=== PATIENT | female | born 1955 | race Caucasian/White ===

== ENCOUNTER 2016-11-20 10:47 | Emergency (ER) | payer OTHER ==
[~2016-11-20] VITALS: Ht 167.6 cm; Wt 72.6 kg
--- NOTE | 2016-11-20 10:55 | ED CARDIAC/CP/PALPITATIONS ---
History of Present Illness General Chief Complaint: Chest Pain Stated Complaint: BIBA, C/P Source: patient, old records, EMS Exam Limitations: no limitations Allergies Coded Allergies: indomethacin (UNKNOWN 11/20/16) iodine (UNKNOWN 11/20/16) phenytoin (UNKNOWN 11/20/16) Reconcile Medications Amlodipine Besylate 10 MG TABLET 1 TAB PO DAILY HEART (Reported) Aspirin (Aspirin*) 81 MG TAB.CHEW 1 TAB PO DAILY HEART HEALTH (Reported) Calcium Citrate (Calcitrate) (Unknown Strength) TABLET (Unknown Dose) PO DAILY SUPPLEMENT (Reported) Cholecalciferol (Vitamin D3) (Vitamin D3) 5,000 UNIT TABLET 1 TAB PO DAILY VITAMIN SUPPORT (Reported) Cyanocobalamin (Vitamin B-12) (B-12) 1,000 MCG TABLET 1 TAB PO DAILY VITAMIN SUPPORT (Reported) Multivitamin (Daily Multiple Vitamin) 1 EACH TABLET 1 TAB PO DAILY VITAMIN SUPPORT (Reported) Theresa-3 Fatty Acids/Fish Oil (Fish Oil 1,000 MG Capsule) 340 MG-1,000 MG CAPSULE 1 CAP PO DAILY SUPPLEMENT (Reported) Prasterone (Dhea)/Calcium Carb (Dhea 10 MG Tablet) 10 MG-47 MG CALCIUM TABLET 1 TAB PO UNKNOWN (Reported) Triage Nurses Notes Reviewed? yes Onset: Abrupt Duration: hour(s): (2.5), better, resolved prior to arrival Timing: single episode today Quality/Severity: moderate, aching, tightness Location: central Radiation: jaw, back Activities at Onset: none Prior Chest Pain/Card Workup: echocardiography, stress test Nitro Today/Relief: 0.4 mg x 1, provided by EMS, complete relief Aspirin Today: 81 mg x 2, provided at home Associated Symptoms: denies HPI: 61-year-old female with history of raynauds, coronary vasospasm for which she is seen by stewardess supervisor Dr. Barrera presents to the ER for evaluation after she developed sudden onset of central chest pain tightness around 9:30 this morning that radiated into her jaw and into her back which was new. She took 2 extra aspirin this morning with improvement of pain to 5 out of 10. Pain was initially 10 out of 10. On EMS arrival she was given nitroglycerin and the pain has resolved. She reports a history of similar episodes 1 year ago. She had a stress test and echocardiogram performed at that time which she believes was unremarkable. No recent changes in her medication, her mother is currently at [facility] undergoing a tavr procedure today and reports to alot of stress. Patient denies any associated shortness of breath, hemoptysis pain with inspiration abdominal pain nausea vomiting diarrhea. She does not smoke there are no other modifying factors or associated symptoms otherwise (IGOR LAMAS) Vital Signs & Intake/Output Vital Signs & Intake/Output Vital Signs Date Time Temp Pulse Resp B/P B/P Pulse O2 O2 Flow FiO2 Mean Ox Delivery Rate 11/20 1527 97.2 78 18 112/61 100 Room Air 11/20 1306 97.0 69 18 130/76 98 Room Air 11/20 1108 97.0 84 16 126/73 97 Room Air Past History Travel History Traveled to [place] past 21 day No Medical History Any Pertinent Medical History? see below for history Cardiovascular: CORONARY VASOSPASM Musculoskeletal: rheumatoid arthritis, RAYNAUDS Surgical History Surgical History: non-contributory Family History Hx Contributory? No (IGOR LAMAS) Review of Systems Review of Systems Constitutional: Reports: see HPI. All Other Systems: Reviewed and Negative Comments Review of systems: See HPI, All other systems negative. Constitutional, no chills no fever, no malaise no weight loss HEENT:no sore throat no congestion, no ear pain Cardiovascular: chest pain , no palpitation , no orthopnea Skin: no rashes, no change in skin Respiratory: No dyspnea no cough no sputum no hemoptysis GI: No nausea no vomiting, no diarrhea : No dysuria No hematuria Muscle skeletal: No joint pain, no joint swelling, no back pain, no neck pain, Neurologic: no headache Psych: stress Heme/endocrine: No bruising no bleeding Immunology: No lymphadenopathy (IGOR LAMAS) Physical Exam Physical Exam General Appearance: well developed/nourished, no apparent distress, alert, awake Cardiovascular: regular rate/rhythm, normal peripheral pulses Comments: Well-developed well-nourished person in no acute distress HEENT: Normal EENT exam; PERRL, EOMI, HEAD is atraumatic. moist mucous membranes. Neck: Supple, normal range of motion Back: Nontender, no CVA tenderness. Full range of motion Cardiovascular: Regular rate and rhythms no murmurs rubs or gallops, normal JVP Respiratory: Chest nontender.There were no bony deformities, no asymmetry. No respiratory distress. Patient speaking in full complete sentences. Breath sounds clear to auscultation bilaterally: NO W/R/R Abdomen: Soft, nontender nondistended, no appreciable organomegaly. Normal bowel sounds. No rebound/guarding, No appreciable enlargement of the abdominal aorta, No ascites. Extremity: No edema, full range of motion of extremities Neuro: Alert oriented x3, motor sensory normal, There were no obvious focal neurologic abnormalities. Skin: No appreciable rash on exposed skin, skin is warm and dry. Psych: Mood and affect is normal, memory and judgment is normal. Core Measures ACS in differential dx? Yes Severe Sepsis Present: No Septic Shock Present: No (IGOR LAMAS) Progress Differential Diagnosis: AMI, aortic dissection, atrial fibrillation, cholecystitis, hyperkalemia, musculoskeletal pain, myocarditis, pancreatitis, pericarditis, pneumonia, pneumothorax, PSVT, pulmonary embolism, PUD/GERD, unstable angina Diagnostic Imaging: Viewed by Me: Radiology Read. Discussed w/RAD: Radiology Read. Radiology Impression: PATIENT: KATHERINE KHAN PRESENT AGE: 61 PATIENT ACCOUNT NO: [id number] : 53 LOCATION: [facility] ORDERING PHYSICIAN: IGOR HIGHTOWER SERVICE DATE: 11/20/16 EXAM TYPE: RAD - XRY- PORTABLE CHEST XRAY EXAMINATION: XR PORTABLE CHEST CLINICAL INFORMATION: Chest pain. Presumptive diagnosis: ACS. COMPARISON: None TECHNIQUE: Portable AP erect view of the chest was obtained. FINDINGS: The heart is normal in size. There is no congestion or focal consolidation. The bony thorax is unremarkable. IMPRESSION: No acute cardiopulmonary process. DICTATED BY: PEDRO DURAN MD DATE/TIME DICTATED:11/20/161142 DIE CLEANER:CHUY DATE/TIME TRANSCRIBED:11/20/161142 CONFIDENTIAL, DO NOT COPY WITHOUT APPROPRIATE AUTHORIZATION. <Electronically signed in Other Vendor System> SIGNED BY: PEDRO DURAN MD 11/20/161146 Initial ED EKG: normal intervals, normal p-waves, normal QRS complex, normal sinus rhythm (80) Prior EKG: unchanged (2005) Rhythm Strip: normal sinus rhythm (IGOR LAMAS) Plan of Care: Orders Procedure Date/time Status Regular Diet 11/20 D Active TROPONIN LEVEL 11/20 1500 Complete EKG 11/20 1500 Active Telemetry/Principal Cyber Engineer 11/20 1111 Active TROPONIN LEVEL 11/20 1054 Complete PROTHROMBIN TIME 11/20 1054 Complete MAGNESIUM 11/20 1054 Complete LIPID PANEL 11/20 1054 Complete COMPREHENSIVE METABOLIC PANEL 11/20 1054 Complete CBC WITHOUT DIFFERENTIAL 11/20 1054 Complete EKG 11/20 1052 Active Laboratory Tests 11/20/16 1453: Troponin I < 0.01 11/20/16 1128: Anion Gap 10, Estimated GFR > 60, BUN/Creatinine Ratio 17.1, Glucose 96, Calcium 10.1, Magnesium 2.4 H, Total Bilirubin 0.5, AST 21, ALT 35, Alkaline Phosphatase 82, Troponin I < 0.01, Total Protein 6.8, Albumin 4.3, Globulin 2.5, Albumin/Globulin Ratio 1.7, Triglycerides 200 H, Cholesterol 213 H, LDL Cholesterol, Calc 117, HDL Cholesterol 56, Cholesterol/HDL Ratio 4, PT 11.1, INR 1.06, CBC w Diff NO MAN DIFF REQ, RBC 4.45, MCV 89.8, MCH 29.7, RDW 13.2, MPV 7.5, Gran % 59.9, Lymphocytes % 30.6, Monocytes % 6.7, Eosinophils % 2.3, Basophils % 0.5, Absolute Granulocytes 3.4, Absolute Lymphocytes 1.7, Absolute Monocytes 0.4, Absolute Eosinophils 0.1, Absolute Basophils 0, PUBS MCHC 33.0 Labs ordered old records reviewed patient denies any symptoms at this time. Case discussed with Dr. Frausto who evaluated the patient agrees with plan I discussed the patient at length all of her lab results, she denies any symptoms at this time remains normal sinus on the monitor, given patient's high risk factors I believe premature discharge would BE medically harmful which she is in agreement with call was placed to Dr. Barrera 1310 pending callback from stewardess supervisor [address] Barrera, he advised to have the patient repeat the troponin at 3:00 as long as she remains pain-free and her troponins are negative she can be discharged with follow-up on Wednesday On repeat evaluation patient denies any complaints I discussed with patient and her daughter at length all of her lab results the patient has been symptom free here no chest pain normal sinus on the monitor they feel comfortable with plan and discharge at this time. She will follow up with Dr. Barrera on Wednesday, she will return anytime sooner for symptoms return or she has any other concerns (IGOR LAMAS) Departure Departure Time of Disposition: 1551 Disposition: HOME OR SELF CARE Condition: Stable Clinical Impression Primary Impression: Atypical chest pain Referrals: JASON DO,JOHAN BARRERA MD PhD,MACI Myers Additional Instructions: Follow-up with Dr. Brarera on Wednesday, return to ER anytime sooner if you redevelop symptoms or have any other concerns. Departure Forms: Customer Survey General Discharge Information (IGOR LAMAS) PA/BOTTOM TURNER Co-Sign Statement Statement: ED Attending supervision documentation- [X] I saw and evaluated the patient. I have also reviewed all the pertinent lab results and diagnostic results. I agree with the findings and the plan of care as documented in the PA's/BOTTOM TURNER's documentation. [] I have reviewed the ED Record and agree with the PA's/BOTTOM TURNER's documentation. [] Additions or exceptions (if any) to the PAs/BOTTOM TURNER's note and plan are summarized below: [] (KARINE DO,LEW Rogers) Critical Care Note Critical Care Note Critical Care Time: non-applicable (IGOR LAMAS)
[2016-11-20] MEDS ORDERED: B-121000 MC3 PO (11:17)
[2016-11-20] MEDS ORDERED: FISH OIL 1,0001 EACH PO (11:18)
[2016-11-20] MEDS ORDERED: CALCITRATE200 MG PO (11:21)
[2016-11-20] MEDS ORDERED: DAILY MULTIPLE1 EACH PO (11:21)
[2016-11-20] MEDS ORDERED: VITAMIN D35000 UNI1 PO (11:22)
[2016-11-20] MEDS ORDERED: ASPIRIN81 M4 PO (11:24)
[2016-11-20] MEDS ORDERED: DHEA 10 MG TAB1 EACH PO (11:25)
[2016-11-20] MEDS ORDERED: AMLODIPINE BESY10 M1 PO (11:25)
[2016-11-20 11:34] LABS: ABSOLUTE BASOPHIL COUNT 0 /CUMM (0.0-0.2); ABSOLUTE EOSINOPHIL COUNT 0.1 /CUMM (0.0-0.7); ABSOLUTE GRANULOCYTE CT 3.4 /CUMM (1.4-6.5); ABSOLUTE LYMPH COUNT 1.7 /CUMM (1.2-3.4); ABSOLUTE MONOCYTE COUNT 0.4 /CUMM (0.10-0.60); BASOPHIL % 0.5 % (0.0-2.0); EOSINOPHIL % 2.3 % (0-5); GRANULOCYTE % 59.9 % (42.2-75.2); MEAN CORPUSCULAR HGB 29.7 PG (27.0-31.0); MEAN CORPUSCULAR VOLUME 89.8 FL (81.0-99.0); MEAN PLATELET VOLUME 7.5 FL (7.4-10.4); PLATELET COUNT 269 /CUMM (130-400); RBC DISTRIBUTION WIDTH 13.2 % (11.5-14.5); RED BLOOD CELL CT 4.45 /CUMM (4.20-5.40); WHITE BLOOD CELL COUNT 5.7 /CUMM (4.8-10.8)
[2016-11-20 11:39] LABS: PT 11.1 SEC (9.4-12.5)
--- NOTE | 2016-11-20 11:47 | RADIOLOGY REPORT ---
EXAMINATION: XR PORTABLE CHEST CLINICAL INFORMATION: Chest pain. Presumptive diagnosis: ACS. COMPARISON: None TECHNIQUE: Portable AP erect view of the chest was obtained. FINDINGS: The heart is normal in size. There is no congestion or focal consolidation. The bony thorax is unremarkable. IMPRESSION: No acute cardiopulmonary process.
[2016-11-20 15:27] VITALS: BP 112/61
== END 2016-11-20 16:02 ==
LOC: ERH 10:47
PROVIDERS: Physician Assistant Medical
DX: R07.89 Other chest pain (principal)
CPT/HCPCS: 93005; 93010